=== PATIENT | male | born 1955 | race Caucasian/White ===

== ENCOUNTER 2017-07-06 15:44 | Inpatient (IN) | payer BC, MEDICAID, OTHER ==
[2017-07-06] MEDS ORDERED: NS 1,000 ML IV ONE (16:19)
--- NOTE | 2017-07-06 16:23 | EDPHY ---
H & P Stated Complaint: Dizziness, pre syncopal episodes on and off several months Time Seen by Provider: 07/06/17 16:06 HPI/ROS: CHIEF COMPLAINT: Pre syncope HISTORY OF PRESENT ILLNESS: Patient is a 62-year-old obese man with a history of hypertension and atrial fibrillation on Eliquis. For the last year he has had intermittent episodes of presyncope as well as tingling in his left neck and arm. They are mostly positional when he stands up too quickly. He denies headache. He denies chest pain or shortness of breath. He denies recent fever illness or trauma. He denies headache. He has been admitted to the hospital 3 times. He is visiting from [place]. He states that he has had 2 stress tests both of which were negative. He states that no one has been able to figure out why he is having the symptoms. Today he was concerned because usual only happens once or twice per day but today was happening every time he would stand up. It is not worsened by neck turning. He does not have any weakness or deficits. No slurred speech. No facial symptoms. He was here last year over [facility] with similar symptoms except without episode he had chills and shakes. He does not have those today. REVIEW OF SYSTEMS: Constitutional: denies: chills, fever, recent illness, recent injury EENTM: denies: blurred vision, double vision, nose congestion Respiratory: denies: cough, shortness of breath Cardiac: See HPI Gastrointestinal/Abdominal: denies: abdominal pain, diarrhea, nausea, vomiting, blood streaked stools Genitourinary: denies: dysuria, frequency, hematuria, pain Musculoskeletal: denies: joint pain, muscle pain Skin: denies: lesions, rash, jaundice, bruising Neurological: denies: headache, numbness, paresthesia, tingling, dizziness, weakness Hematologic/Lymphatic: denies: blood clots, easy bleeding, easy bruising Immunologic/allergic: denies: HIV/AIDS, transplant EXAM: GENERAL: Well-appearing, obese and in no acute distress. HEAD: Atraumatic, normocephalic. EYES: Pupils equal round and reactive to light, extraocular movements intact, sclera anicteric, conjunctiva are normal. ENT: TMs normal, nares patent, oropharynx clear without exudates. Moist mucous membranes. NECK: Normal range of motion, supple without lymphadenopathy or JVD. LUNGS: Breath sounds clear to auscultation bilaterally and equal. No wheezes rales or rhonchi. HEART: Irregular without murmurs, rubs or gallops. ABDOMEN: Soft, nontender, normoactive bowel sounds. No guarding, no rebound. No masses appreciated. BACK: No CVA tenderness, no spinal tenderness, step-offs or deformities EXTREMITIES: Normal range of motion, no pitting or edema. No clubbing or cyanosis. NEUROLOGICAL: Cranial nerves II through XII grossly intact. Normal speech, normal gait. 5/5 strength, normal movement in all extremities, normal sensation PSYCH: Normal mood, normal affect. SKIN: Warm, dry, normal turgor, no visible rashes or lesions. Source: Patient, Family Exam Limitations: No limitations - Personal History Current Tetanus Diphtheria and Acellular Pertussis (TDAP): Unsure - Medical/Surgical History Hx Asthma: No Hx Chronic Respiratory Disease: No Hx Diabetes: No Hx Cardiac Disease: No Hx Renal Disease: No Hx Cirrhosis: No Hx Alcoholism: No Hx HIV/AIDS: No Hx Splenectomy or Spleen Trauma: No Other PMH: Afib, HTN, arthritis bilat knees, left knee surgery - Social History Smoking Status: Never smoked Alcohol Use: None Drug Use: None Constitutional: Initial Vital Signs Temperature (C) 36.9 C 07/06/17 15:45 Heart Rate 90 07/06/17 15:45 Respiratory Rate 18 07/06/17 15:45 Blood Pressure 175/98 H 07/06/17 15:45 O2 Sat (%) 96 07/06/17 15:45 O2 Delivery Mode Room Air Allergies/Adverse Reactions: No Known Allergies Allergy (Unverified 06/26/16 14:23) Home Medications: Medication Instructions Recorded Apixaban [Eliquis] 5 mg PO BID 06/26/16 Lisinopril [Zestril 20 mg (*)] 20 mg PO DAILY 06/26/16 Metoprolol Succinate 50 mg PO DAILY 06/26/16 Minocycline HCl [Minocin 50 mg (*)] 100 mg PO HS 07/06/17 metroNIDAZOLE 0.75 % [Metrogel 45 gm TP HS 07/06/17 0.75% Topical Gel (RX)] Medical Decision Making - Diagnostics EKG Interpretation: An EKG obtained and was read and documented in trace view. Please see trace view for full reading and report. Atrial fibrillation with worsened right bundle-branch block. Imaging Results: Imaging Impressions Chest X-Ray 07/06/17 16:19 Impression: Pulmonary venous congestion and an enlarged cardiac silhouette. ED Course/Re-evaluation: 4:30 p.m. the patient is orthostatics. When he sits up his blood pressure goes from 162 systolic to 132 systolic. His heart rate goes from 94 to 116. I discussed the case with Dr. Gabriel Paulino who will admit to medical service. Patient has a new right bundle branch block and is orthostatic. He is receiving IV fluids. Differential Diagnosis: Partial list of the Differential diagnosis considered include but were not limited to; pre syncope, atrial fibrillation, dehydration and although unlikely based on the history and physical exam, I also considered anxiety, acute coronary disease, aneurysm, dissection, TIA. - Data Points Laboratory Results: Laboratory Results 07/06/17 16:51 07/06/17 16:51 07/06/17 07/06/17 16:51 16:51 WBC 6.41 10^3/uL 10^3/uL (3.80-9.50) RBC 4.42 10^6/uL 10^6/uL (4.40-6.38) Hgb 14.5 g/dL g/dL (13.7-17.5) Hct 41.3 % % (40.0-51.0) MCV 93.4 fL fL (81.5-99.8) MCH 32.8 pg pg (27.9-34.1) MCHC 35.1 g/dL g/dL (32.4-36.7) RDW 13.7 % % (11.5-15.2) Plt Count 156 10^3/uL 10^3/uL (150-400) MPV 11.0 fL fL (8.7-11.7) Neut % (Auto) 77.8 % H % (39.3-74.2) Lymph % (Auto) 13.6 % L % (15.0-45.0) [place]on % (Auto) 6.7 % % (4.5-13.0) Eos % (Auto) 1.1 % % (0.6-7.6) Baso % (Auto) 0.6 % % (0.3-1.7) Nucleat RBC Rel Count 0.0 % % (0.0-0.2) Absolute Neuts (auto) 4.99 10^3/uL 10^3/uL (1.70-6.50) Absolute Lymphs (auto) 0.87 10^3/uL L 10^3/uL (1.00-3.00) Absolute Monos (auto) 0.43 10^3/uL 10^3/uL (0.30-0.80) Absolute Eos (auto) 0.07 10^3/uL 10^3/uL (0.03-0.40) Absolute Basos (auto) 0.04 10^3/uL 10^3/uL (0.02-0.10) Absolute Nucleated RBC 0.00 10^3/uL 10^3/uL (0-0.01) Immature Gran % 0.2 % % (0.0-1.1) Immature Gran # 0.01 10^3/uL 10^3/uL (0.00-0.10) Sodium 139 mEq/L mEq/L (134-144) Potassium 4.3 mEq/L mEq/L (3.5-5.2) Chloride 106 mEq/L mEq/L (97-110) Carbon Dioxide 24 mEq/l mEq/l (22-31) Anion Gap 9 mEq/L mEq/L (8-16) BUN 16 mg/dL mg/dL (7-23) Creatinine 1.0 mg/dL mg/dL (0.7-1.3) Estimated GFR > 60 Glucose 126 mg/dL H mg/dL (70-100) Calcium 9.5 mg/dL mg/dL (8.5-10.4) Troponin I 0.014 ng/mL ng/mL (0.000-0.034) Medications Given: Discontinued Medications Sodium Chloride (Ns) 1,000 mls @ 0 mls/hr IV EDNOW ONE; Wide Open PRN Reason: Protocol Stop: 07/06/17 16:20 Last Admin: 07/06/17 16:45 Dose: 1,000 mls Departure - Departure Disposition: [facility] Inpatient Acute Clinical Impression: Pre-syncope, Orthostasis Condition: Fair
--- NOTE | 2017-07-06 16:39 | CPEKG ---
Heart Rate: 91 RR Interval: 659 QRSD Interval: 138 QT Interval: 380 QTC Interval: 468 QRS Rochelle: -44 T Wave Rochelle: 62 EKG Severity - ABNORMAL ECG - EKG Impression: ATRIAL FIBRILLATION EKG Impression: MULTIPLE VENTRICULAR PREMATURE COMPLEXES EKG Impression: RIGHT BUNDLE BRANCH BLOCK EKG Impression: PROBABLE ANTEROSEPTAL INFARCT, AGE INDETERM EKG Impression: Worsened bundle-branch block Electronically Signed By: Frank Villela 06-Jul-2017 16:43:00
[2017-07-06 16:56] LABS: % IMMATURE GRANULYOCYTES 0.2 % (0.0-1.1); ABSOLUTE IMMATURE GRANULOCYTES 0.01 10^3/uL (0.00-0.10); ADD DIFF? NO; ADD MORPH? NO; ADD SCAN? NO; ATYPICAL LYMPHOCYTE FLAG 0 (0-99); FRAGMENT RBC FLAG 0 (0-99); HEMATOCRIT 41.3 % (40.0-51.0); HEMOGLOBIN 14.5 g/dL (13.7-17.5); LEFT SHIFT FLG 0 (0-99); LIPEMIA HEMOLYSIS FLAG 90 (0-99); MEAN CELL HEMOGLOBIN 32.8 pg (27.9-34.1); MEAN CELL HEMOGLOBIN CONCENTR. 35.1 g/dL (32.4-36.7); MEAN CELL VOLUME 93.4 fL (81.5-99.8); PLATELET CLUMPS FLAG 0 (0-99); PLATELET COUNT 156 10^3/uL (150-400); RED BLOOD CELL COUNT 4.42 10^6/uL (4.40-6.38); RED CELL DISTRIBUTION WIDTH 13.7 % (11.5-15.2)
[2017-07-06 17:24] LABS: ANION GAP 9 mEq/L (8-16); CALCIUM 9.5 mg/dL (8.5-10.4); CARBON DIOXIDE 24 mEq/l (22-31); CHLORIDE 106 mEq/L (97-110); GLOMERULAR FILTRATION RATE > 60; GLUCOSE 126 mg/dL (70-100); POTASSIUM 4.3 mEq/L (3.5-5.2); SODIUM 139 mEq/L (134-144)
[2017-07-06 17:34] LABS: TROPONIN I 0.014 ng/mL (0.000-0.034)
[2017-07-06] MEDS ORDERED: FUROSEMIDE 40 MG/4 ML VIAL IVP ONE (21:11)
[2017-07-06] MEDS ORDERED: ONDANSETRON DISINTEGRATING 4 MG TAB PO PRN (21:12)
[2017-07-06] MEDS ORDERED: ONDANSETRON 4 MG/2 ML VIAL IVP PRN (21:12)
[2017-07-06] MEDS: MINOCYCLINE HCL 50 MG CAP PO SCH (21:30)
[2017-07-06] MEDS: APIXABAN 5 MG TAB PO SCH (21:30)
[2017-07-06] MEDS: METRONIDAZOLE 0.75 % 45 GEL TP SCH (21:31)
--- NOTE | 2017-07-06 22:56 | GHP ---
[f rep st] HISTORY AND PHYSICAL DATE OF ADMISSION: 07/06/2017 HISTORY OF PRESENT ILLNESS: The patient is a 62-year-old gentleman with history of atrial fibrillati on as well as hypertension, who lives in [place], [place] but he is visiting his brother here. He has done this many times before. He has been diagnosed with atrial fibrillation for the last coup le of years. He has never had a cardioversion. He does not have clinical heart failure symptoms. Josey guzman presents today with lightheadedness and dizziness. He says the dizziness is described as lighthead edness. He had orthostatics checked in the emergency department. There were positive. He takes a b eta mary ann and an KAYLAN inhibitor. He has been eating and drinking well without diarrhea, nausea or v omiting. His BUN and creatinine are 16 and 1.0. He denies fever, chills, nausea, vomiting, diarrhea . He just notes breathlessness and he sought care today because of the dizziness that is interfering with activity. He has been having similar symptoms in [place] He also notes tingling in his left neck and arm. 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 He had bilateral knee replacements last summer. He has been on Eliquis for a couple of years. No history of VTE. REVIEW OF SYSTEMS: Complete 10-point review of systems conducted and negative as noted in HPI. PAST MEDICAL HISTORY: 1. Atrial fibrillation on Eliquis and metoprolol. 2. Hypertension. 3. Bilateral knee arthroplasties. 4. Sounds like probably rosacea. 5. Suspected sleep apnea. ALLERGIES: No known drug allergies. MEDICATIONS: 1. Metrogel topical. 2. Minocycline. 3. Metoprolol. 4. Lisinopril. 5. Apixaban. SOCIAL HISTORY: He admits to drinking more alcohol perhaps than he thinks is healthy but he went 3 m onths last summer without drinking during his bilateral knee replacements without difficulties. Nons moker. Lives in [place]. His brother lives here. FAMILY HISTORY: Brother lives in [place] and is healthy. PHYSICAL EXAMINATION: VITAL SIGNS: Temp 36.6, blood pressure 161/106. His heart rate is 79. Breat jakob times a minute. 96% on room air. He did also have orthostatics where lying down his blood pressure and his heart rate was 94. Became positive with a heart rate of 116 and b lood pressure of when sitting. He never actually became hypotensive though. GENERAL: No acute distress. HEENT: He has facial plethora and/or rosacea. NECK: Supple. Difficult to assess JVD. LUNGS: Clear to auscultation bilaterally with crackles at the bases. HEART: S1, S2. Irregu larly irregular without significant systolic murmur. ABDOMEN: Soft, obese, nontender. LOWER EXTREM ITIES: 1+ edema bilaterally. Calves nontender. SKIN: Without rash. NEUROLOGIC: Nonfocal. LABORATORY: CBC is normal. Sodium 139, potassium 4.3, chloride 106, bicarb 24, BUN 16, creatinine 1 .0, glucose 126. Troponin 0.014. Chest x-ray, interpreted by me, shows mild cardiomegaly with moderate congestive heart failure. EKG, interpreted by me, shows atrial fibrillation at 91 with left axis deviation, right bundle branch block pattern, which is apparently new. I discussed the case with Dr. Frank Villela. ASSESSMENT AND PLAN: A 62-year-old gentleman presents with lightheadedness, dizziness, new right bun dle branch block. 1. Lightheadedness. The patient is in orthostasis but he is not actually hypotensive so it is hard to implicate this. I actually think the patient is clinically in a little bit of heart failure. I a m going to give him a dose of Lasix today. I have considered pulmonary embolism. Given his Eliquis therapy, I am going to hold off on workup. The patient may have a degree of sleep apnea as well. We will diurese and check an echocardiogram. 2. Indeterminate troponin. I will cycle this. 3. Hypertension. We will continue his medications. 4. Rosacea. Continue his medications. 5. Atrial fibrillation. We will follow his heart rate overnight on the monitor. Perhaps it getting rapid or bradycardic and that is contributing to his symptoms and it has just been not caught in the monitoring thus far. 6. Disposition: Observation status. /[id number]/MODL
[2017-07-07 05:31] LABS: ANION GAP 10 mEq/L (8-16); CALCIUM 9.4 mg/dL (8.5-10.4); CARBON DIOXIDE 24 mEq/l (22-31); CHLORIDE 109 mEq/L (97-110); CREATININE 0.9 mg/dL (0.7-1.3); GLOMERULAR FILTRATION RATE > 60; GLUCOSE 85 mg/dL (70-100); POTASSIUM 3.9 mEq/L (3.5-5.2); SODIUM 143 mEq/L (134-144)
[2017-07-07 05:42] LABS: TROPONIN I 0.022 ng/mL (0.000-0.034)
[2017-07-07] MEDS: LISINOPRIL 20 MG TAB PO SCH (08:04)
[2017-07-07] MEDS ORDERED: BACITRACIN IRRIGATION/NS 50,000 UNITS/1,000 ML BTL IRR ONE (08:30)
[2017-07-07] MEDS ORDERED: NS 1,000 ML IV ONE (08:30)
[2017-07-07] MEDS ORDERED: METOPROLOL SUCCINATE XR 50 MG TAB PO SCH (09:00)
[2017-07-07 09:09] LABS: INR 1.19 (0.83-1.16); PROTIME(PATIENT) 15.1 SEC (12.0-15.0)
[2017-07-07 09:10] LABS: APTT 36.2 SEC (23.0-38.0)
[2017-07-07] MEDS ORDERED: ENOXAPARIN 120 MG/0.8 ML SYR SC SCH (10:00)
[2017-07-07] MEDS: APIXABAN 5 MG TAB PO SCH (10:06)
--- NOTE | 2017-07-07 10:06 | PDCARCONS ---
Cardiology Consult Reason for Consult: Ventricular pause Chief Complaint: Dizziness, prior episode of syncope Requesting Physician: Dr. Trace Paulino History of Present Illness: 62-year-old male visiting from [facility]. [facility] RN, his brother and his [id number]-eyr were present for this discussion He had an episode of syncope a few months ago, etiology was not determined. He has had intermittent episodes of severe dizziness which are not orthostatic. He presented within a similar episode yesterday. He was noted to have ventricular pauses during atrial fibrillation. I have reviewed these tracings. At 9:48 p.m. there was a 5.2 second pause. At 10:26 p.m. yesterday there was a 5 second pause followed by a junctional escape beat followed by a 3 second pause. Patient remained in a junctional escape rhythm at 30 beats per minute for about a minute afterwards. He was given his dose of Eliquis last night. He reports that he has been feeling fatigued over the last 3 years. He was seen by a biology adjunct instructor and was noted to be in atrial fibrillation. He tells me that he has been in atrial fibrillation continuously for the last 3 years, there have not been any attempts made to convert him to sinus rhythm either with antiarrhythmic drug therapy or with DC cardioversion. History Information - Allergies/Home Medication List Allergies/Adverse Reactions: No Known Allergies Allergy (Unverified 06/26/16 14:23) Home Medications: Apixaban [Eliquis] 5 mg PO BID 06/26/16 [Last Taken 07/06/17] Lisinopril [Zestril 20 mg (*)] 20 mg PO DAILY 06/26/16 [Last Taken 07/06/17] Metoprolol Succinate 50 mg PO DAILY 06/26/16 [Last Taken 07/06/17] Minocycline HCl [Minocin 50 mg (*)] 100 mg PO HS 07/06/17 [Last Taken 07/05/17] metroNIDAZOLE 0.75 % [Metrogel 0.75% Topical Gel (RX)] 45 gm TP HS 07/06/17 [ Last Taken 07/05/17] I have personally reviewed and updated: family history, medical history, social history, surgical history Past Medical History: - Social History Smoking Status: Never smoked Alcohol Use: None Drug Use: None Physical Exam Physical Exam: Temp Pulse Resp BP Pulse Ox 36.8 C 82 16 175/113 H 96 07/07/17 07:51 07/07/17 07:51 07/07/17 07:51 07/07/17 07:51 07/07/17 07:51 Constitutional: no apparent distress, appears nourished, obese Eyes: PERRL, EOMI Ears, Nose, Mouth, Throat: moist mucous membranes, hearing normal Cardiovascular: irregularly irregular Respiratory: no respiratory distress Gastrointestinal: normoactive bowel sounds, soft, non-tender abdomen Genitourinary: no bladder fullness Skin: warm, normal color Neurologic: AAOx3 Psychiatric: interacting appropriately, not anxious, not encephalopathic Lab and Imaging 07/06/17 16:51 07/07/17 04:19 WBC 6.41 10^3/uL (3.80-9.50) 07/06/17 16:51 RBC 4.42 10^6/uL (4.40-6.38) 07/06/17 16:51 Hgb 14.5 g/dL (13.7-17.5) 07/06/17 16:51 Hct 41.3 % (40.0-51.0) 07/06/17 16:51 MCV 93.4 fL (81.5-99.8) 07/06/17 16:51 MCH 32.8 pg (27.9-34.1) 07/06/17 16:51 MCHC 35.1 g/dL (32.4-36.7) 07/06/17 16:51 RDW 13.7 % (11.5-15.2) 07/06/17 16:51 Plt Count 156 10^3/uL (150-400) 07/06/17 16:51 MPV 11.0 fL (8.7-11.7) 07/06/17 16:51 Neut % (Auto) 77.8 % (39.3-74.2) H 07/06/17 16:51 Lymph % (Auto) 13.6 % (15.0-45.0) L 07/06/17 16:51 [place] % (Auto) 6.7 % (4.5-13.0) 07/06/17 16:51 Eos % (Auto) 1.1 % (0.6-7.6) 07/06/17 16:51 Baso % (Auto) 0.6 % (0.3-1.7) 07/06/17 16:51 Nucleat RBC Rel Count 0.0 % (0.0-0.2) 07/06/17 16:51 Absolute Neuts (auto) 4.99 10^3/uL (1.70-6.50) 07/06/17 16:51 Absolute Lymphs (auto) 0.87 10^3/uL (1.00-3.00) L 07/06/17 16:51 Absolute Monos (auto) 0.43 10^3/uL (0.30-0.80) 07/06/17 16:51 Absolute Eos (auto) 0.07 10^3/uL (0.03-0.40) 07/06/17 16:51 Absolute Basos (auto) 0.04 10^3/uL (0.02-0.10) 07/06/17 16:51 Absolute Nucleated RBC 0.00 10^3/uL (0-0.01) 07/06/17 16:51 Immature Gran % 0.2 % (0.0-1.1) 07/06/17 16:51 Immature Gran # 0.01 10^3/uL (0.00-0.10) 07/06/17 16:51 PT 15.1 SEC (12.0-15.0) H 07/07/17 08:50 INR 1.19 (0.83-1.16) H 07/07/17 08:50 APTT 36.2 SEC (23.0-38.0) 07/07/17 08:50 Sodium 143 mEq/L (134-144) 07/07/17 04:19 Potassium 3.9 mEq/L (3.5-5.2) 07/07/17 04:19 Chloride 109 mEq/L (97-110) 07/07/17 04:19 Carbon Dioxide 24 mEq/l (22-31) 07/07/17 04:19 Anion Gap 10 mEq/L (8-16) 07/07/17 04:19 BUN 17 mg/dL (7-23) 07/07/17 04:19 Creatinine 0.9 mg/dL (0.7-1.3) 07/07/17 04:19 Estimated GFR > 60 07/07/17 04:19 Glucose 85 mg/dL (70-100) 07/07/17 04:19 Calcium 9.4 mg/dL (8.5-10.4) 07/07/17 04:19 Troponin I 0.022 ng/mL (0.000-0.034) 07/07/17 04:19 NT-Pro-B Natriuret Pep 793 pg/mL (0-125) H 07/07/17 04:19 Visualized and Interpreted EKG results: Yes EKG additional interpertation: Atrial fibrillation Telemetry: See dictation in HPI Echocardiogram: Pending at the time of this dictation A/P Assessment: 1. Hypertension 2. Longstanding persistent atrial fibrillation 3. Ventricular pauses during atrial fibrillation and associated syncope and presyncope 4. Obesity 5. Possible sleep apnea Plan: 62-year-old male with above-noted findings. He has longstanding persistent atrial fibrillation of at least 3 years in duration. He is presenting with presyncope and syncope. Permanent pacemaker is indicated, given his fatigue attempts should be made to convert him to sinus rhythm and therefore will place a dual-chamber pacemaker. Risks of permanent pacing including infection, bleeding, pneumothorax, cardiac perforation, DVT, lead dislodgement etc were discussed with him and his family. He is left-handed but plays golf right- handed and therefore would like the pacemaker to be placed in the left infraclavicular area. He took his Eliquis last night. His metoprolol is being held. He should be off Eliquis for 48 hours prior to placing a pacemaker to reduce risk of bleeding. We will cover him with Lovenox in the interim. Procedure is scheduled for Sunday at 11:00 a.m.. He and I discussed the role of rhythm control given his fatigue. Catheter based ablation would not be very effective with his longstanding persistent atrial fibrillation. He should have attempts made at restoring sinus rhythm with antiarrhythmic drug therapy, he will talk to his biology adjunct instructor in [facility] about this. Consideration can be given to surgical Maze procedure via thoracotomy approach. We discussed that his likelihood of having sleep apnea is high. He will be tested for sleep apnea. We talked about the importance of losing weight
--- NOTE | 2017-07-07 10:58 | ASMTCMCOM ---
CM Note CM Note Notes: Spoke w/ RN, pt will get a pacemaker placed on Sunday, dc home to brother's home on Sunday and fly home a week later. CM available for any changes. Current DC Plan: Dc independent Date Signed: 07/07/2017 10:57 AM Electronically Signed By:Suzy Yates RN
[2017-07-07] MEDS: ENOXAPARIN 150 MG/ML SYR SC SCH ×2 (11:57→20:45)
--- NOTE | 2017-07-07 12:31 | ECHO ---
[email or web address] [address] [address] Main: [phone] Fax: Transthoracic Echocardiogram Name: WING GAMEZ MR#: [id number] Study Date: 07/07/2017 Study Time: 09:57 AM Date of : 1955 Age: 62 year(s) Height: 185.4 cm (73 in.) Weight: 143.34 kg (316 lb.) BSA: 2.61 m2 Gender: Male Examination: Echo Indication: clinical CHF, Atrial Fibrillation, Cardiac: dyspnea, ?RHF Image Quality: Technically Difficult Contrast: Requested by: Trace Paulino BP: 175 mmHg/113 mmHg Heart Rate: Rhythm: Atrial fibrillation Indication: clinical CHF, Atrial Fibrillation, Cardiac: dyspnea, ?RHF Procedure Staff Subcontract Administrator: Janeth Loredo Reading Physician: Heath Denney Requesting Provider: Conclusions: Normal size left ventricle. Concentric LV hypertrophy. Normal global systolic LV function. EF is 60 %. No obvious regional wall motion abnormalities however it is difficult to assess due to poor acoustic windows. Trivial mitral valve regurgitation. Aortic sclerosis is present. No aortic valve stenosis is present. Trivial to mild tricuspid valve regurgitation. Right ventricular systolic pressure measures 26mmHg. No pericardial effusion. Measurements: Chambers Valvular Assessment AV/MV Valvular Assessment TV/PV Normal Normal Normal Name Value Range Name Value Range Name Value Range Ao Ania (MM): 3.5 cm (2.2 cm-3.7 AV Vmax: 1.42 m/s (1 m/s-1.7 TR Vmax: 2.31 mm/s ( - ) cm) m/s) TR PGmax: 21 mmHg ( - ) IVSd (2D): 1.5 cm (0.6 cm-1.1 AV maxP mmHg ( - ) syst. PAP: 26 mmHg ( - ) cm) AV meanP mmHg ( - ) PV Vmax: 0.72 m/s (0.6 m/s-0.9 LVDd (2D): 4.3 cm (4.2 cm-5.9 EBONIE (VTI): 2.9 cm ( - ) m/s) cm) MV E Vmax: 0.78 m/s ( - ) PV PGmax: 2 mmHg ( - ) LVDs (2D): 2.9 cm (2.1 cm-4 cm) LVPWd (2D): 1.5 cm (0.6 cm-1 cm) LVOTd 2.1 cm 2.1 cm mm LVEF (2D): 60 (>=54 %) Patient: WING GAMEZ Study Date: 07/07/2017 Page 1 of 2 09:57 AM RVDd(2D): 3.7 cm (1.9 cm-3.8 cmmm) Continued Measurements: Chambers Valvular Assessment TV/PV Name Value Name Value LADs Lon.3 cm CVP (est.): 5 mmHg LA Area: 29.0 cm2 LA Volume: 90 ml LA Volume Index: 34.5 ml/m2 Additional Vessels Name Value Ao Ascendin.2 cm Findings: Left Ventricle: Normal size left ventricle. Concentric LV hypertrophy. Normal global systolic LV function. EF is 60 %. Unable to assess diastolic dysfunction. No obvious regional wall motion abnormalities however it is difficult to assess due to poor acoustic windows. Right Ventricle: Normal size right ventricle. Normal RV function. Left Atrium: The left atirum is borderline dilated. Right Atrium: Grossly normal RA size.. Mitral Valve: The mitral valve is normal in appearance. Trivial mitral valve regurgitation. Aortic Valve: The aortic valve is tri-leaflet. Aortic sclerosis is present. No aortic valve stenosis is present. Tricuspid Valve: The tricuspid valve appears normal. Trivial to mild tricuspid valve regurgitation. Right ventricular systolic pressure measures 26mmHg. The pulmonary artery pressure is normal. Pulmonic Valve: Pulmonary valve not well visualized. Trivial pulmonic valve regurgitation. Aorta: Normal size aortic root measuring 3.5 cm. Normal size ascending aorta measuring 3.2 cm. Pericardium: No pericardial effusion. There is pericardial fat. (No Signature Object) Patient: WING GAMEZ Study Date: 07/07/2017 Page 2 of 2 09:57 AM [id number]
--- NOTE | 2017-07-07 16:49 | HOSPPROG ---
Hospitalist Progress Note Assessment/Plan: * Syncope with > 5 second pause -PCM Sunday once off Xarelto 48 hours -hold metoprolol * Afib -Lovenox while off Xarelto * Morbid obesity BMI 41 * Probable DAYNE -outpatient sleep study * Rosacea -home meds Subjective: no new complaints. Objective: Vital Signs Temp Pulse Resp BP Pulse Ox 36.7 C 85 22 H 167/111 H 95 07/07/17 12:00 07/07/17 12:00 07/07/17 12:00 07/07/17 12:00 07/07/17 12:00 Laboratory Results 07/07/17 04:19 07/06/17 07/07/17 07/08/17 05:59 05:59 05:59 Intake Total 1400 Output Total 650 Balance 750 PT 15.1 SEC (12.0-15.0) H 07/07/17 08:50 INR 1.19 (0.83-1.16) H 07/07/17 08:50 CXR viewed, my personal interpretation is - negative tele reviewed - rate controlled afib ECHO - EF 60% - Physical Exam Constitutional: no apparent distress, appears nourished, not in pain, obese, No chronically ill appearing Cardiovascular: regular rate and rhythym, no murmur, rub, or gallop Respiratory: no respiratory distress, no rales or rhonchi, clear to auscultation Gastrointestinal: normoactive bowel sounds, soft, non-tender abdomen, no palpable masses Skin: no rashes or abrasions, no fluctuance, no induration Neurologic: AAOx3, sensation intact bilaterally Psychiatric: interacting appropriately, not anxious, not encephalopathic, thought process linear ICD10 Worksheet Patient Problems: Problems Problem Status Onset Orthostasis Acute Pre-syncope Acute
--- NOTE | 2017-07-07 17:26 | PDMN ---
Medical Necessity Medical necessity: C/M review: Patient meets INPT criteria [place] [facility] [place] Syncope; Acute syncope with > 5 second pause requiring holding oral anticoagulation x 48 hrs. and bridge with subcutaneous Lovenox BID for planned 07/09/2017 dual chamber permanent pacemaker imoplantation, ongoing cardiac monitoring, close monitoring, comorbid atrial fibrillation on chronic anticoagulation, morbid obesity - BMI 41, probable obstructive sleep apnea, rosacea. MD anticipates > 2 MN LOS for ongoing med nec foreval and [place] of above.
[2017-07-07] MEDS: MINOCYCLINE HCL 50 MG CAP PO SCH (20:45)
[2017-07-07] MEDS: METRONIDAZOLE 0.75 % 45 GEL TP SCH (21:10)
[2017-07-07] MEDS: ZOLPIDEM TARTRATE 5 MG TAB PO PRN (21:59)
[2017-07-08] MEDS: LISINOPRIL 20 MG TAB PO SCH (08:55)
[2017-07-08] MEDS: ENOXAPARIN 150 MG/ML SYR SC SCH (08:58)
--- NOTE | 2017-07-08 10:05 | PDCARPN ---
Cardiology Progress Note Assessment/Plan: Assessment / Plan: Atrial fibrillation with tachycardia bradycardia syndrome. Without beta- blockers on board, his blood pressure is difficult to control and his ventricular rates are in the 120s. This puts him at risk for tachycardia mediated cardiomyopathy. With beta-blockers on board, he has heart rates in the 30s and ventricular pauses of up to 5 seconds with associated syncope and presyncope. Plan dual-chamber pacemaker tomorrow because attempt should be made to control his rhythm because he is having fatigue with atrial fibrillation. 07/08/17 10:03 Subjective: Feels well. Has not had any further episodes of bradycardia or presyncope. Time Spent With Patient: 15 minutes Objective: Vital Signs (8 Hrs) Temp Pulse Resp BP Pulse Ox 07/08/17 08:00 36.6 C 82 24 H 160/111 H 96 07/08/17 04:00 36.6 C 70 18 168/125 H 95 Intake/Output (24 Hrs) 07/06/17 07/07/17 07/08/17 11:59 11:59 11:59 Intake Total 760 Output Total 160 Balance 600 Intake: Oral (ml) 760 Output: Urine (ml) 160 Urinal 160 Other: Number of Voids Toilet 2 Result Diagrams: 07/06/17 16:51 07/07/17 04:19 Telemetry: Atrial fibrillation with rapid ventricular response, rates 120-130 beats per minute range Echocardiogram: Normal left ventricular ejection fraction ICD10 Worksheet Patient Problems: Problems Problem Status Onset Pre-syncope Acute Orthostasis Acute
--- NOTE | 2017-07-08 17:30 | HOSPPROG ---
Hospitalist Progress Note Assessment/Plan: * Syncope with > 5 second pause -PCM Sunday once off Xarelto 48 hours -hold metoprolol * Afib -Lovenox while off Xarelto * HTN -lisinopril, norvasc * Morbid obesity BMI 41 * Probable DAYNE -outpatient sleep study * Rosacea -home meds Subjective: No new complaints. Objective: Vital Signs Temp Pulse Resp BP Pulse Ox 36.9 C 89 18 140/90 H 96 07/08/17 16:50 07/08/17 16:50 07/08/17 16:50 07/08/17 16:50 07/08/17 16:50 07/07/17 07/08/17 07/09/17 05:59 05:59 05:59 Intake Total 760 Output Total 160 Balance 600 PT 15.1 SEC (12.0-15.0) H 07/07/17 08:50 INR 1.19 (0.83-1.16) H 07/07/17 08:50 - Physical Exam Constitutional: no apparent distress, appears nourished, not in pain Cardiovascular: regular rate and rhythym, no murmur, rub, or gallop Respiratory: no respiratory distress, no rales or rhonchi, clear to auscultation Gastrointestinal: normoactive bowel sounds, soft, non-tender abdomen, no palpable masses Skin: no rashes or abrasions, no fluctuance, no induration Neurologic: AAOx3, sensation intact bilaterally Psychiatric: interacting appropriately, not anxious, not encephalopathic, thought process linear ICD10 Worksheet Patient Problems: Problems Problem Status Onset Orthostasis Acute Pre-syncope Acute
[2017-07-08] MEDS ORDERED: FLU VACC QS 2017-18 (3YR+)/PF 0.5 ML SYR (FLUARIX QUAD) IM ONE (17:55)
[2017-07-08] MEDS: MINOCYCLINE HCL 50 MG CAP PO SCH (21:27)
[2017-07-08] MEDS: ZOLPIDEM TARTRATE 5 MG TAB PO PRN (21:35)
[2017-07-08] MEDS: METRONIDAZOLE 0.75 % 45 GEL TP SCH (21:36)
[2017-07-09] MEDS: ZOLPIDEM TARTRATE 5 MG TAB PO PRN ×2 (01:49→21:09)
[2017-07-09] MEDS ORDERED: ceFAZolin 2 GM/SWFI 2 GM/20 ML SYR IVP ONE (06:00)
[2017-07-09] MEDS ORDERED: BACITRACIN IRRIGATION/NS 50,000 UNITS/1,000 ML BTL IRR ONE ×2 (06:00→08:00)
[2017-07-09 06:13] LABS: % IMMATURE GRANULYOCYTES 0.2 % (0.0-1.1); ABSOLUTE IMMATURE GRANULOCYTES 0.01 10^3/uL (0.00-0.10); ADD DIFF? NO; ADD MORPH? NO; ADD SCAN? NO; ATYPICAL LYMPHOCYTE FLAG 0 (0-99); FRAGMENT RBC FLAG 0 (0-99); HEMATOCRIT 39.9 % (40.0-51.0); HEMOGLOBIN 13.8 g/dL (13.7-17.5); LEFT SHIFT FLG 0 (0-99); LIPEMIA HEMOLYSIS FLAG 90 (0-99); MEAN CELL HEMOGLOBIN 32.6 pg (27.9-34.1); MEAN CELL HEMOGLOBIN CONCENTR. 34.6 g/dL (32.4-36.7); MEAN CELL VOLUME 94.3 fL (81.5-99.8); MEAN PLATELET VOLUME 11.1 fL (8.7-11.7); PLATELET CLUMPS FLAG 0 (0-99); PLATELET COUNT 146 10^3/uL (150-400); RED BLOOD CELL COUNT 4.23 10^6/uL (4.40-6.38); RED CELL DISTRIBUTION WIDTH 13.7 % (11.5-15.2)
[2017-07-09 06:22] LABS: INR 1.05 (0.83-1.16); PROTIME(PATIENT) 13.6 SEC (12.0-15.0)
[2017-07-09 06:23] LABS: APTT 36.4 SEC (23.0-38.0)
[2017-07-09 06:33] LABS: ALANINE AMINOTRANSFERASE 65 IU/L (21-72); ALBUMIN 3.5 g/dL (3.5-5.0); ALKALINE PHOSPHATASE 79 IU/L (38-126); ANION GAP 8 mEq/L (8-16); ASPARTATE AMINOTRANSFERASE 41 IU/L (17-59); BILIRUBIN,TOTAL 1.1 mg/dL (0.1-1.4); CALCIUM 9.5 mg/dL (8.5-10.4); CARBON DIOXIDE 28 mEq/l (22-31); CHLORIDE 109 mEq/L (97-110); GLOMERULAR FILTRATION RATE > 60; GLUCOSE 91 mg/dL (70-100); POTASSIUM 4.2 mEq/L (3.5-5.2); SODIUM 145 mEq/L (134-144); TOTAL PROTEIN 6.2 g/dL (6.3-8.2)
--- NOTE | 2017-07-09 08:49 | HOSPPROG ---
Hospitalist Progress Note Assessment/Plan: 62 yo M w AF admitted w LH, found to have pauses Syncope with > 5 second pause -PCM Sunday once off Xarelto 48 hours -hold metoprolol Afib -Lovenox while off Xarelto HTN -lisinopril, norvasc Morbid obesity BMI 41 Probable DAYNE -outpatient sleep study [place] -home meds Subjective: case d/w dr sinha. pacer today Objective: Vital Signs Temp Pulse Resp BP Pulse Ox 37.0 C 77 18 159/108 H 96 07/09/17 08:40 07/09/17 08:40 07/09/17 08:40 07/09/17 08:40 07/09/17 08:40 Laboratory Results 07/09/17 05:55 07/09/17 05:55 07/08/17 07/09/17 07/10/17 05:59 05:59 05:59 Intake Total 760 700 Output Total 160 Balance 600 700 PT 13.6 SEC (12.0-15.0) 07/09/17 05:55 INR 1.05 (0.83-1.16) 07/09/17 05:55 - Physical Exam Constitutional: no apparent distress, appears nourished Eyes: PERRL, anicteric sclera Ears, Nose, Mouth, Throat: moist mucous membranes, hearing normal Cardiovascular: regular rate and rhythym, no murmur, rub, or gallop Respiratory: no respiratory distress, no rales or rhonchi Gastrointestinal: normoactive bowel sounds, soft, non-tender abdomen Genitourinary: no bladder fullness, No richey in urethra Skin: warm, normal color Musculoskeletal: full muscle strength, no muscle tenderness Neurologic: AAOx3 Psychiatric: interacting appropriately ICD10 Worksheet Patient Problems: Problems Problem Status Onset Orthostasis Acute Pre-syncope Acute
--- NOTE | 2017-07-09 08:51 | CPEKG ---
Heart Rate: 83 RR Interval: 723 QRSD Interval: 142 QT Interval: 424 QTC Interval: 499 QRS [place]: -65 T Wave [place]: 91 EKG Severity - ABNORMAL ECG - EKG Impression: ATRIAL FIBRILLATION, V-RATE 65-105 EKG Impression: RBBB AND LAFB EKG Impression: LATERAL INFARCT, AGE INDETERMINATE Electronically Signed By: Grady Morales 09-Jul-2017 11:10:27
[2017-07-09] MEDS: LISINOPRIL 20 MG TAB PO SCH (09:14)
[2017-07-09] MEDS ORDERED: LIDOCAINE 1% 300 MG/30 ML SDV ONE (10:59)
[2017-07-09] MEDS ORDERED: fentaNYL 100 MCG/2 ML INJ ONE ×2 (10:59→11:22)
[2017-07-09] MEDS ORDERED: BUPIVACAINE 0.5% 30 ML SDV ONE (11:00)
[2017-07-09] MEDS ORDERED: MIDAZOLAM 2 MG/2 ML VIAL ONE ×2 (11:00→11:22)
--- NOTE | 2017-07-09 11:09 | PDPROPOC ---
Sedation Plan of Care Sedation Plan of Care: vital signs stable, mental status noted, patient educated of risks, benefits, alternatives, patient can tolerate sedation ASA Classification: ASA 2 Planned drugs: fentanyl Mallampati Score: Class 2 Mallampati Reference Image: Patient passed 3-3-2 rule?: Yes
--- NOTE | 2017-07-09 11:09 | PDHPUP ---
History & Physical Update H&P update statement: This history and physical update is based on an assessment of the patient which was completed after admission or registration (within 24 hours), but prior to the surgery/procedure. H&P update: H&P reviewed & patient examined, no change in patient's condition since H&P completed
[2017-07-09] MEDS ORDERED: IOPAMIDOL (ISOVUE-300) 100 ML BTL ONE (11:25)
[2017-07-09] MEDS ORDERED: CEFAZOLIN 1 GM/DEXTROSE/50 ML BAG IV ONE (11:35)
--- NOTE | 2017-07-09 14:01 | CPEKG ---
Heart Rate: 71 RR Interval: 845 QRSD Interval: 158 QT Interval: 436 QTC Interval: 474 QRS [place]: -35 T Wave [place]: 232 EKG Severity - ABNORMAL ECG - EKG Impression: ATRIAL FIBRILLATION, V-RATE 61-84 EKG Impression: RBBB AND LAFB EKG Impression: PROBABLE LEFT VENTRICULAR HYPERTROPHY Electronically Signed By: Jayesh Perdomo 09-Jul-2017 15:49:00
[2017-07-09] MEDS: ACETAMINOPHEN 325 MG TAB PO PRN ×2 (14:31→19:33)
--- NOTE | 2017-07-09 19:19 | EPPROC ---
Electrophysiology Procedure Note: PROCEDURE PERFORMED: 1. Implantation of an A/V Pacemaker 2. Subclavian vein angiography 3. Fluoroscopy INDICATION: Longstanding persistent AFIB with tachy-peter syndrome. Ventricular pauses of up to 5s with presyncope and syncope Atrial lead placed since patient wants to try and attempt to restore sinus rhythm due to fatigue. PROCEDURE NOTE: Patient presented to the cardiac catheterization laboratory in a fasting, post absorptive state . EP RN administered sedation. The left infraclavicular area was prepped and draped in the usual sterile fashion. Lidocaine plus bupivacaine was used for local anesthesia. Left subclavian venography was performed by injection of iodinated contrast into the left antecubital vein. This was done to assure patency of the vein and also to assess for any anatomical aberrations. Using a combination of blunt and sharp dissection and electrocautery, the dissection was carried down to the prepectoral fascia. A pocket was made in this anatomical plane. All bleeding was controlled with electrocautery. The pocket was packed with gauze soaked in antibiotic solution. Fluoroscopy was utilized during the entire procedure for venous access and placement of the leads. Using a direct stick technique the left extrathoracic axillary vein was accessed with 2 sticks using the modified Seldinger technique. Placement of the guidewires into the venous system was confirmed by low-pressure blood return and also by visualizing the guidewires advancing into the inferior vena cava. A purse string suture was applied around the guidewires. Two #7 Syriac sheaths were advanced under fluoroscopic guidance over the guidewire. An active fixation ventricular lead was advanced into the right ventricular apex and screwed in place. An active fixation atrial lead was advanced into the right atrial appendage and screwed in place. The peel away sheaths were removed. Pacing thresholds, sensing parameters and lead impedances were measured. There was no diaphragmatic stimulation at maximum output. The leads were sutured to the prepectoral fascia with 3 nonabsorbable sutures each. The pocket was again inspected for any bleeding. The leads were attached to the pacemaker securely. The pacemaker was inserted into the pocket and secured in place with a nonabsorbable suture. Fluoroscopy was performed in QUINTEROS and KOSOVAN planes to verify right-sided placement of the leads. Also fluoroscopy of the pacemaker pocket was performed. The pacemaker pocket was closed in 3 layers with absorbable monocryl sutures and ciara. Appropriate dressing was applied. The patient left the cardiac catheterization laboratory in stable condition. Serial Numbers: 1. Device: SJM Assurity MRI 2272 SN [id number] 2. Atrial Lead: SJM Tendril 8 52 CM SN [id number] 3. Ventricular Lead: SJM Tendril 8 58 cm TC [id number] Stimulation Thresholds & Impedance Measurements: 1. Atrial Lead F waves 1.6 mV 484 ohm 2. Ventricular Lead R 11.6 mV 0.6 V 0.5 ms 0.9 mA Peter Pacing Parameters 1. Pacing mode: VVI 2. Lower rate: 60ppm Patient Problems: Problems Problem Status Onset Pre-syncope Acute Orthostasis Acute
[2017-07-09] MEDS: MINOCYCLINE HCL 50 MG CAP PO SCH (21:09)
[2017-07-09] MEDS: METRONIDAZOLE 0.75 % 45 GEL TP SCH (21:10)
[2017-07-10] MEDS: ACETAMINOPHEN 325 MG TAB PO PRN ×2 (03:31→08:33)
[2017-07-10 03:44] VITALS: RESP 17
[2017-07-10 05:23] LABS: % IMMATURE GRANULYOCYTES 0.5 % (0.0-1.1); ABSOLUTE IMMATURE GRANULOCYTES 0.02 10^3/uL (0.00-0.10); ADD DIFF? NO; ADD MORPH? NO; ADD SCAN? NO; ATYPICAL LYMPHOCYTE FLAG 0 (0-99); FRAGMENT RBC FLAG 0 (0-99); HEMOGLOBIN 12.6 g/dL (13.7-17.5); LEFT SHIFT FLG 0 (0-99); LIPEMIA HEMOLYSIS FLAG 80 (0-99); MEAN CELL HEMOGLOBIN 31.8 pg (27.9-34.1); MEAN CELL HEMOGLOBIN CONCENTR. 33.2 g/dL (32.4-36.7); MEAN PLATELET VOLUME 11.7 fL (8.7-11.7); PLATELET CLUMPS FLAG 10 (0-99); PLATELET COUNT 120 10^3/uL (150-400); RED BLOOD CELL COUNT 3.96 10^6/uL (4.40-6.38); RED CELL DISTRIBUTION WIDTH 13.6 % (11.5-15.2)
[2017-07-10 05:49] LABS: ANION GAP 8 mEq/L (8-16); CALCIUM 8.8 mg/dL (8.5-10.4); CARBON DIOXIDE 25 mEq/l (22-31); CHLORIDE 107 mEq/L (97-110); GLOMERULAR FILTRATION RATE > 60; GLUCOSE 85 mg/dL (70-100); POTASSIUM 4.1 mEq/L (3.5-5.2); SODIUM 140 mEq/L (134-144)
[2017-07-10 07:43] VITALS: BP 148/99; PULSE 80; TEMP 98.4; O2SAT 96
[2017-07-10] MEDS: LISINOPRIL 20 MG TAB PO SCH (08:26)
[2017-07-10] MEDS: METOPROLOL TARTRATE 25 MG TAB PO SCH ×2 (08:26→09:15)
--- NOTE | 2017-07-10 09:01 | CPEKG ---
Heart Rate: 89 RR Interval: 674 QRSD Interval: 146 QT Interval: 420 QTC Interval: 512 QRS [place]: -23 T Wave [place]: 64 EKG Severity - ABNORMAL ECG - EKG Impression: AFIB/FLUT AND V-PACED COMPLEXES EKG Impression: RIGHT BUNDLE BRANCH BLOCK EKG Impression: LVH WITH IVCD AND SECONDARY REPOL ABNRM Electronically Signed By: Jayesh Perdomo 10-Jul-2017 15:40:57
--- NOTE | 2017-07-10 09:55 | HOSPPROG ---
Hospitalist Progress Note Assessment/Plan: 62 yo M w AF admitted w LH, found to have pauses Syncope with > 5 second pause -PCM yesterday metoprolol restarted Afib -Lovenox while off Xarelto HTN -lisinopril, norvasc Morbid obesity BMI 41 Probable DAYNE -outpatient sleep study Rosacea -home meds dispo: home today > 30 minutes on dc Subjective: feels great. case d/w dr sinha. cxr w no ptx by my read Objective: Vital Signs Temp Pulse Resp BP Pulse Ox 36.9 C 80 17 148/99 H 96 07/10/17 07:41 07/10/17 07:41 07/10/17 07:41 07/10/17 07:41 07/10/17 07:41 Laboratory Results 07/10/17 04:26 07/10/17 04:26 07/09/17 07/10/17 07/11/17 05:59 05:59 05:59 Intake Total 700 950 Balance 700 950 PT 13.6 SEC (12.0-15.0) 07/09/17 05:55 INR 1.05 (0.83-1.16) 07/09/17 05:55 - Physical Exam Constitutional: no apparent distress, appears nourished Eyes: PERRL, anicteric sclera Ears, Nose, Mouth, Throat: moist mucous membranes, hearing normal Cardiovascular: regular rate and rhythym, no murmur, rub, or gallop Respiratory: no respiratory distress, no rales or rhonchi Gastrointestinal: normoactive bowel sounds, soft, non-tender abdomen Genitourinary: no bladder fullness, No richey in urethra Skin: warm, normal color Musculoskeletal: full muscle strength Neurologic: AAOx3 ICD10 Worksheet Patient Problems: Problems Problem Status Onset Orthostasis Acute Pre-syncope Acute
--- NOTE | 2017-07-10 12:10 | ASDISCHSUM ---
Discharge Information Plan Status:Home with No Needs Medically Cleared to Leave:07/09/2017 Discharge Date:07/10/2017 12:06 PM CM D/C Disposition:Home, Routine, Self-Care ADT D/C Disposition:Home, Routine, Self-Care Projected Discharge Date:07/10/2017 12:06 PM Transportation at D/C:Family Discharge Delay Reason: Follow-Up Date:07/10/2017 12:06 PM Discharge Slot: Final Diagnosis: Placement Information Patient Contact Information Contact Name:PARAS Relationship:Friend Address: Work Phone: City: [facility] Phone: State/[employer] Code: Email: Financial Information Financial Class: Primary Plan Desc:WILLIAN ARRIAGA Primary Plan Number:[id number] Secondary Plan Desc: Secondary Plan Number: Assessment Information [facility] CM Progress Note CM Note CM Note Notes: Spoke w/ RN, pt will get a pacemaker placed on Sunday, dc home to brothirasema's home on Sunday and fly home a week later. CM available for any changes. Current DC Plan: Dc independent Date Signed: 07/07/2017 10:57 AM Electronically Signed By:Suzy Yates RN LACE LACE Length of stay for Answers: 4-6 days current admission Acuity / Level of Care Answers: Was the patient admitted to hospital via the emergency department? Yes: Emergency dept visits in Answers: 0 last 6 months Score: 7 Date Signed: 07/10/2017 12:09 PM Electronically Signed By:Elo Salinas RN Intervention Information
--- NOTE | 2017-07-10 13:45 | GDS ---
[f rep st] DISCHARGE SUMMARY DISCHARGE DIAGNOSES: 1. Bradycardia with sinus pauses. 2. Atrial fibrillation. 3. Obesity. 4. Rosacea. 5. Hypertension. HOSPITAL COURSE: Please see admission History and Physical by Dr. Trace Paulino. The patient prese nted on the evening of the with dizziness that has been going on for a period of time, it was wo rse. He was placed in telemetry, immediately had a 6-second pause, then became bradycardic in the 20 s and 30s. His beta-mary ann was held and his atrial fibrillation became rapid. After holding his Xa relto for 48 hours, he had an uncomplicated pacemaker placement. The patient can resume his home medications. 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 Sleep study showing that he only spent 1% of the time with oxyge n saturations less than %; he has a copy of that paper. DISCHARGE MEDICATIONS: Unchanged. /[id number]/MODL
== END 2017-07-10 12:06 | disposition home or self-care (01) | DRG 244 ==
LOC: F2W 18:15 → OBSVTOIN 07-07 11:58
PROVIDERS: ADMIT Internal Medicine; ATTEND Internal Medicine
DX: I48.91 Unspecified atrial fibrillation (principal); R00.1 Bradycardia, unspecified; E66.9 Obesity, unspecified; I10 Essential (primary) hypertension; L71.9 Rosacea, unspecified; G47.33 Obstructive sleep apnea (adult) (pediatric); Z79.01 Long term (current) use of anticoagulants; Z96.653 Presence of artificial knee joint, bilateral; Z23 Encounter for immunization
CPT/HCPCS: C1785; C1898; G0008; G0378; J0690; J1940; J2250; J3010; Q9967